=== PATIENT | male | born 1985 | race Two or more races ===

== ENCOUNTER 2020-06-04 18:30 | Emergency (ER) | payer MEDICAID, OTHER ==
[~2020-06-04] VITALS: Ht 170.2 cm; Wt 83.9 kg
[2020-06-04 18:42] VITALS: BP 154/93
== END 2020-06-04 22:30 | disposition home or self-care (01) ==
LOC: ER 18:30 → EDBD 18:30 → ER 22:30
DX: S83.92XA Sprain of unspecified site of left knee, initial encounter (principal); M25.78 Osteophyte, vertebrae; M51.26 Other intervertebral disc displacement, lumbar region; V49.9XXA Car occupant (driver) (passenger) injured in unspecified traffic accident, initial encounter; Y93.89 Activity, other specified; Y92.89 Other specified places as the place of occurrence of the external cause; Y99.8 Other external cause status
CPT/HCPCS: 70450; 72125; 72128; 72131; 73562